=== PATIENT | female | born 1975 | race Caucasian/White ===

== ENCOUNTER 2017-03-03 19:55 | Emergency (ER) | payer OTHER ==
[2017-03-03 19:55] VITALS: BMI 24.9
[2017-03-03] MEDS ORDERED: Oxycodone/Acetaminophen 5/325 mg Tab PO STA (20:50)
[2017-03-03] MEDS ORDERED: Oxycodone/Acetaminophen 5/325 mg Tab ONE (20:58)
--- NOTE | 2017-03-03 20:59 | C.PDOC ---
History Of Present Illness A 41 year old female comes in c/o pain to right neck radiating to the right shoulder since waking up this morning. Patient notes tingling sensation to the right fingers but denies trauma, no weakness or numbness, fevers, chills, headache, nausea, vomiting, or any other complaints. Time Seen by Provider: 03/03/17 20:41 Chief Complaint (Nursing): ENT Problem History Per: Patient History/Exam Limitations: no limitations Onset/Duration Of Symptoms: Hrs Current Symptoms Are (Timing): Still Present Severity: Mild Associated Symptoms: denies: New Weakness, New Numbness Additional History Per: Patient Past Medical History Reviewed: Historical Data, Nursing Documentation, Vital Signs Vital Signs: Last Vital Signs Temp 98.6 F 03/03/17 22:16 Pulse 88 03/03/17 22:16 Resp 16 03/03/17 22:16 BP 135/72 03/03/17 22:16 Pulse Ox 100 03/03/17 22:16 Family History: States: Unknown Family Hx - Social History Hx Alcohol Use: Yes Hx Substance Use: No - Immunization History Hx Tetanus Toxoid Vaccination: No Hx Influenza Vaccination: No Hx Pneumococcal Vaccination: No Review Of Systems Except As Marked, All Systems Reviewed And Found Negative. Constitutional: Negative for: Fever, Chills Gastrointestinal: Negative for: Nausea, Vomiting Musculoskeletal: Positive for: Neck Pain (Right neck), Shoulder Pain (Radiation right shoulder pain) Neurological: Positive for: Headache. Negative for: Weakness, Numbness Physical Exam - Physical Exam Appears: Non-toxic, No Acute Distress Skin: Warm, Dry Head: Atraumatic, Normacephalic Eye(s): bilateral: Normal Inspection Neck: Normal ROM, Paracervical Tenderness (Right Paracerviacal spine and ), No Step Off Deformity, Supple Extremity: Normal ROM (FROM bilateral upper extremity), Capillary Refill (<2 sec ), No Swelling Pulses: Left Carotid: Normal, Right Carotid: Normal Neurological/Psych: Normal Motor, Normal Sensation ED Course And Treatment O2 Sat by Pulse Oximetry: 99 (RA) Pulse Ox Interpretation: Normal Medical Decision Making Medical Decision Making: Impression: 41 y/o c/o right neck pain radiating to right shoulder Plans: -Valium -Percocet -Reassess and disposition Pt reports improvement of symptoms, will d/c with RX for pain and muscle relaxer Disposition - Disposition Disposition: HOME/ ROUTINE Disposition Time: 21:38 Condition: STABLE Additional Instructions: Take meds as directed Apply warm compress to area Return to ER if worse Prescriptions: Diazepam [Valium] 10 mg PO TID #14 tablet Naproxen [Naprosyn] 1 tab PO BID PRN #25 tab PRN Reason: Pain Instructions: Cervical Strain (DC) - Clinical Impression Clinical Impression: Cervical strain - Scribe Statement The provider has reviewed the documentation as recorded by the Scribcorey houser All medical record entries made by the Johnibcorey were at my direction and personally dictated by me. I have reviewed the chart and agree that the record accurately reflects my personal performance of the history, physical exam, medical decision making, and the department course for this patient. I have also personally directed, reviewed, and agree with the discharge instructions and disposition.
[2017-03-03 22:19] VITALS: BP 135/72; PULSE 88; RESP 16; TEMP 98.6
[2017-03-04 02:18] VITALS: O2SAT 99
== END 2017-03-03 22:19 | disposition home or self-care (01) ==
LOC: C.ER 19:55
DX: S16.1XXA Strain of muscle, fascia and tendon at neck level, initial encounter (principal); X58.XXXA Exposure to other specified factors, initial encounter